=== PATIENT | male | born 1950 | race Caucasian/White ===

== ENCOUNTER 2024-02-29 09:09 | Emergency (ER) | payer MEDICARE, SELFPAY ==
[2024-02-29 09:15] VITALS: BP 200/81; PULSE 56; RESP 16; TEMP 36.8; O2SAT 96; BMI 26.6
--- NOTE | 2024-02-29 09:35 | CT_ITS ---
WS: [id number] CTA HEAD AND NECK TECHNIQUE: Contrast enhanced CTA of the head and neck with coronal and sagittal reformatted images an d maximum intensity projection (MIP) images. NASCET criteria utilized. CLINICAL INFORMATION: L facial, hand, leg numbness COMPARISON: None. DLP: 558.[address] scans at [facility] use at least one of these dose optimization techniques: automated e xposure control; mA and/or kV adjustment per patient size (includes targeted exams where dose is matc hed to clinical indication); or iterative reconstruction. FINDINGS: RIGHT: RIGHT common carotid artery is patent. Mild calcified atheromatous plaque RIGHT carotid bulb e xtending to the ICA. Less than 50% RIGHT ICA stenosis. RIGHT ICA is patent to the skull base. LEFT: LEFT common carotid artery is patent. Mild calcified atheromatous plaque LEFT carotid bulb exte nding into the ICA. Less than 50% LEFT ICA stenosis. LEFT ICA is patent to the skull base. LEFT dominant vertebral artery. Smaller but patent RIGHT vertebral artery. Proximal basilar artery is patent. Normal vascularity to the IT PROJECT MANAGER territory bilaterally. Mild narrowing of the RIGHT P1-2 juncti on. Mild intracranial atheromatous disease. Both ICAs are patent to the skull base. Moderate cavernous ca rotid calcification. Normal vascularity to the HERBIE and MCA territories bilaterally. No evidence of pr oximal flow-limiting stenosis. Mild narrowing in the cavernous carotid arteries bilaterally. Straightening with reversal of the normal cervical lordosis. 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 Sligh t anterolisthesis C5 on C6. Lung apices are well aerated. Paranasal sinuses are well aerated. CT/CT angio headneck* [id number] IMPRESSION: 1. Less than 50% ICA stenosis bilaterally. Both ICAs are patent to the skull b ase. 2. LEFT dominant vertebral artery. Both vertebral arteries are patent. 3. Mild intracranial atheromatous disease. 4. No evidence of proximal flow-limiting intracranial stenosis. 5. Mild stenosis RIGHT P1-2 segment. Distal RIGHT IT PROJECT MANAGER remains patent.
--- NOTE | 2024-02-29 09:36 | ECG_ITS ---
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 Measurements Intervals [place] Rate: 52 P: 32 DE: 177 QRS: -2 QRSD: 86 T: 65 QT: 414 QTc: 387 Interpretive Statements SINUS BRADYCARDIA No previous ECG available for comparison Electronically Signed On 02-29-2024 10:32:19 CDT by Franko Angel M.D. [id number]
--- NOTE | 2024-02-29 09:36 | CT_ITS ---
WS: [id number] CT scan of the head, 02/29/2024 Clinical Data: L facial, hand, leg numbness Comparison: None. DLP: 1061.08 mGy-centimeters All CT scans at [facility] use at least one of these dose optimization techniques: automated e xposure control; mA and/or kV adjustment per patient size (includes targeted exams where dose is matc hed to clinical indication); or iterative reconstruction. Findings: The ventricular system is minimally dilated without shift. No recent infarct or hemorrhage is seen. T here are no abnormal intracerebral masses. The cerebellum and brainstem are not remarkable. Bony windows of the skull and skull base show no fractures or erosions. The mastoid air cells, landscape maintenance internship al auditory canals, sella turcica, intraorbital contents, and paranasal sinuses are unremarkable. CT/CT head thrombolytic 02402 Impression: Mild cerebral atrophy.
--- NOTE | 2024-02-29 09:41 | ED_ITS ---
Documented by User: LOU Daniels 02/29/24 11:39 HPI - Neuro Symptoms/Deficit 2 General: Chief Complaint: Weakness Stated Complaint: numbness is face, hands, arm Time Seen by Provider: 02/29/24 09:20 Source: patient Mode of arrival: wheelchair Limitations: no limitations History of Present Illness: Patient is a nice 74-year-old male here with complaints of paresthesias near his left jaw, loss of dexterity to his left hand, and what he feels could be a left foot drop. He states he began noticing symptoms yesterday. He feels like he has underwent a dental block to the left side of his face/jaw as it feels tingling . He felt like yesterday he began losing dexterity in his left hand although later states this could be secondary to his carpal tunnel and trigger finger. He has not noticed any numbness or tingling or weakness to the arm itself. He also reports he feels like he is dragging his left leg . Does report a history of back/lumbar radiculopathy. Doesn't feel like the leg is weak. Patient fears he could have had a stroke or a right-sided brain tumor. Patient denies previous CVA/TIA. PMH includes hypertension. He states PCP is Dr. Santos although has not seen her yet. Onset (ago): day(s) (yesterday) Timing confirmed by: other (self) Location: left face, left arm (left hand) and left leg History of same: No Severity: mild Quality: numb and tingling Relieving factors: none Exacerbating factors: none On Anticoagulants: No Associated symptoms: Deny chest pain, headache(s), malaise, nausea, syncope, vertigo or vomiting Treatments Prior to Arrival: none Review of Systems 2 Const: Denies: fever(s), chills, body aches, fatigue or malaise Eyes: Denies: change in vision, blurry vision, photophobia, floaters or seeing flashes Card: Denies: chest pain, palpitations, irregular heart rhythm, lightheadedness, syncope or dyspnea on exertion Resp: Denies: dyspnea, productive cough or pain on inspiration GI: Denies: abdominal pain, nausea, vomiting, heartburn or diarrhea : Denies: difficulty urinating or dysuria Musc: Denies: neck pain, back pain, extremity pain, extremity swelling or joint pain Skin/Breast: Denies: rash Neuro: Reports: sensory changes and lack of coordination (reports loss of dexterity in L hand); Denies: headache(s), weakness in extremities, frequent falls, dizziness, vertigo, confusion, behavioral changes, Slurred speech present or seizure-like activity NIH stroke score 2 NIHSS: Level Of Consciousness - 1a: 0 Level Of Consciousness Questions - 1b: Both Correct Level Of Consciousness Commands - 1c: Both Correct Best Gaze - 2: Normal Visual Sandoval - 3: No Visual Loss Facial Palsy - 4: N ormal Motor Arm Right - 5: No Drift Motor Arm Left - 5: No Drift Motor Leg Right - 6: No Drift Motor Leg Left - 6: No Drift Limb Ataxia - 7: A bsent Sensory - 8: Mild To Moderate Loss Best Language - 9: No Aphasia Dysarthia - 10: Normal Extinction And Inattention - 11: 0 Score: Total Score: 1 Physical Exam 2 Const: COMMON NORMALS: no acute distress, average body habitus, patient oriented x3, no limitations, healthy appearing, alert and well nourished G ENERAL APPEARANCE: cooperative ORIENTATION/CONSCIOUSNESS: Yes awake, Yes oriented to person, Yes oriented to place and Yes oriented to time HENMT: COMMON NORMALS: normocephalic and atraumatic HEAD & SCALP: normal to inspection, normocephalic and atraumatic FACE & SINUS: normal facial exam and face symmetric Eye: COMMON NORMALS: Equal, round and reactive pupils present and EOMs intact bilaterally GENERAL EYE: appearance normal, both eyes and all related structures and normal light reflex VISUAL SANDOVAL: Yes other (no visual field deficits ) PUPIL: Yes Equal, round and reactive pupils present DIRECT OPHTHALMOSCOPY: Yes normal light reflex Neck/C-Spine: COMMON NORMALS: full ROM, no lymphadenopathy, supple and no meningeal signs Chest: COMMONS NORMALS: normal inspection of the chest Resp: COMMON NORMALS: normal respiratory effort and clear to auscultation bilaterally AUSCULTATION: clear to auscultation bilaterally Cardio: COMMON NORMALS: regular rhythm RATE: bradycardic (upper 50s) R HYTHM: regular rhythm GI: COMMON NORMALS: Normal to inspection, nondistended, normoactive bowel sounds present, Soft to palpation, non-tender, No hepatosplenomegaly present and no masses PALPATION: Yes Soft to palpation and Yes No hepatosplenomegaly present : COMMON NORMALS: Yes no CVA tenderness BLADDER/KIDNEY EXAM: Yes no CVA tenderness Back/Pelvis: COMMON NORMALS: no CVA tenderness and thoracic and lumbar spine normal to inspection Extremity: COMMON NORMALS: normal to inspection, full ROM, capillary refill normal, no joint enlargement, no clubbing, cyanosis or edema, no calf tenderness and no pedal edema GENERAL: Yes normal exam except as noted Neuro: FRANCISCO COMA SCALE: document GCS findings Francisco coma scale eye opening: Spontaneous [place] coma scale verbal response: Orientated [place] coma scale motor response: Obey commands Francisco coma scale total score: 15 COMMON NORMALS: patient oriented x3, CN's II-XII intact bilaterally, moves all extremities and no focal motor deficits SENSORIUM/ORIENTATION: Yes alert, Yes oriented to person, Yes oriented to place and Yes oriented to time MENINGEAL SIGNS: Yes no meningeal signs COORDINATION/BALANCE: [id number]-aw-[id number] test normal and [id number]-aq-[id number] test normal SPEECH: speech normal SENSORY EXAM: Y es other (see below) MOTOR EXAM: 5/5 motor strength present throughout C OORDINATION: [id number]-yd-[id number] test normal and [id number]-xc-[id number] test normal OTHER: reports some mild decreased sensation to his lower L face/jaw as well as his medial L lower leg and L fingers Skin: COMMON NORMALS: no rashes or lesions noted GENERAL SKIN EXAM: no rashes or lesions noted Course 2 Vital Signs: Vital signs: Vital Signs Temperature 98.2 F 02/29/24 09:15 Pulse Rate 47 L 02/29/24 11:33 Respiratory Rate 22 H 02/29/24 11:33 Blood Pressure 178/95 02/29/24 11:33 Pulse Oximetry 94 02/29/24 11:33 Oxygen Delivery Me thod Room Air 02/29/24 11:33 MDM - Neuro Symptoms/Deficit Medical Decision Making Patient has no motor weakness. NIH of 1 upon arrival for sensory/paresthesias. Symptoms beginning yesterday. Blood work here is unremarkable. CT head and CTA head/neck obtained and non-acute. He will be written outpatient order for MRI and will have him follow up with PCP. Will start on statin/plavix. He already takes a daily aspirin. Spoke to Dr. Diaz in regards to patient and he agrees with care plan/work up performed here in the ED. Return precautions given to the patient. Differential Diagnosis Likely carpal tunnel syndrome, peripheral neuropathy, cerebrovascular accident and transient cerebral ischemia Medical Records I reviewed the patient's medical records. Lab Data I reviewed the patient's lab results. 02/29/24 09:47 02/29/24 09:47 Radiology Impressions Head/Neck CTA 02/29/24 09:35 IMPRESSION: 1. Less than 50% ICA stenosis bilaterally. Both ICAs are patent to the skull base. 2. LEFT dominant vertebral artery. Both vertebral arteries are patent. 3. Mild intracranial atheromatous disease. 4. No evidence of proximal flow-limiting intracranial stenosis. 5. Mild stenosis RIGHT P1-2 segment. Distal RIGHT ROD TAPE OPERATOR remains patent. Head CT 02/29/24 09:36 Impression: Mild cerebral atrophy. Laboratory Results WBC 6.18 10^3/uL (3.29-11.43) 02/29/24 09:47 RBC 5.36 10^6/uL (3.85-5.65) 02/29/24 09:47 Hgb 16.10 g/dL (11.27-16.99) 02/29/24 09:47 Hct 48.3 % (37-53) 02/29/24 09:47 MCV 90.1 fl (82-101) 02/29/24 09:47 MCH 30.0 pg (27-33) 02/29/24 09:47 MCHC 33.3 g/dL (30-55) 02/29/24 09:47 RDW 12.7 % (12.1-15.1) 02/29/24 09:47 Plt Count 216 10^3/cmm (157-399) 02/29/24 09:47 MPV 9.8 fL (7.4-10.4) 02/29/24 09:47 Neut % (Auto) 62.8 % 02/29/24 09:47 Lymph % (Auto) 22.8 % 02/29/24 09:47 [place] % (Auto) 8.3 % 02/29/24 09:47 Eos % (Auto) 4.5 % 02/29/24 09:47 Baso % (Auto) 1.3 % 02/29/24 09:47 Neut # (Auto) 3.88 10^3/uL (1.8-7.7) 02/29/24 09:47 Lymph # (Auto) 1.4 10^3/uL (0.8-4.8) 02/29/24 09:47 [place] # (Auto) 0.5 10^3/uL (0.2-0.9) 02/29/24 09:47 Eos # (Auto) 0.3 10^3/uL (0.0-0.8) 02/29/24 09:47 Baso # (Auto) 0.1 10^3/uL (0.0-0.1) 02/29/24 09:47 Nucleated RBC % (auto) 0 % 02/29/24 09:47 Nucleated RBCs # 0.0 /100WBC 02/29/24 09:47 PT 12.80 SECONDS (12.1-14.9) 02/29/24 09:47 INR 0.94 (0.8-1.2) 02/29/24 09:47 APTT 32.8 SECONDS (23.9-36.7) 02/29/24 09:47 Sodium 143 mmol/L (136-145) 02/29/24 09:47 Potassium 4.0 mmol/L (3.5-5.1) 02/29/24 09:47 Chloride 107 mmol/L (98-107) 02/29/24 09:47 Carbon Dioxide 24 mmol/L (22-29) 02/29/24 09:47 Anion Gap 16.0 (5-19) 02/29/24 09:47 BUN 17 mg/dL (8-23) 02/29/24 09:47 Creatinine 0.9 mg/dL (0.7-1.2) 02/29/24 09:47 GFR Calculation Not Reportable 02/29/24 09:47 Glucose 122 mg/dL (65-115) H 02/29/24 09:47 Calculated Osmolality 299 mOsm/kg (285-295) H 02/29/24 09:47 Calcium 9.1 mg/dL (8.5-10.5) 02/29/24 09:47 Total Bilirubin 0.4 mg/dL (0.15-1.2) 02/29/24 09:47 AST 11 U/L (0-40) 02/29/24 09:47 ALT 15 U/L (0-41) 02/29/24 09:47 Alkaline Phosphatase 95 U/L (40-130) 02/29/24 09:47 Total Protein 6.7 g/dL (6.6-8.7) 02/29/24 09:47 Albumin 3.9 g/dL (3.5-5.2) 02/29/24 09:47 Globulin 2.8 g/dL (1.3-4.6) 02/29/24 09:47 All radiology interpretation(s) finalized by discharge Discharge Plan Discharge Patient Disposition: Home Clinical Impression: Stroke-like symptoms Condition: Stable Prescriptions: New atorvastatin 40 mg tablet 40 mg PO DAILY Qty: 30 0RF Plavix 75 mg tablet 75 mg PO DAILY Qty: 30 0RF No Action doxycycline hyclate 100 mg capsule 100 mg PO BID PRN (Reason: Acne) promethazine 25 mg tablet 50 mg PO BEDTIME PRN (Reason: Sleep) olmesartan 20 mg tablet 20 mg PO DAILY nebivolol 10 mg tablet 10 mg PO BEDTIME Discharge Orders: Discharge ED (Routine); Ordered 02/29/24 Ordered By: Susan Lux Activity Restrictions/Additional Instructions: As we discussed your CT head and CT head/neck angiogram were unremarkable. Your blood work is normal. I have scheduled you for an outpatient MRI. Case management/central scheduling should be contacting you in regards to this. As we discussed I would like you to recheck your primary care provider this week and set up a follow-up appointment. I will start you on atorvastatin and Plavix in addition to your daily aspirin therapy. Coding Level of Care Code ED Riprap Placing Supervisor for Chg Fwd Documented by User: Arnie Diaz DO 02/29/24 11:41 HPI - Neuro Symptoms/Deficit 2 General: Chief Complaint: Weakness Stated Complaint: numbness is face, hands, arm Time Seen by Provider: 02/29/24 09:20 NIH stroke score 2 Score: Total Score: 1 Physical Exam 2 Neuro: FRANCISCO COMA SCALE: document GCS findings [place] coma scale total score: 15 Course 2 Vital Signs: Vital signs: Vital Signs Temperature 98.2 F 02/29/24 09:15 Pulse Rate 47 L 02/29/24 11:33 Respiratory Rate 22 H 02/29/24 11:33 Blood Pressure 178/95 02/29/24 11:33 Pulse Oximetry 94 02/29/24 11:33 Oxygen Delivery Me thod Room Air 02/29/24 11:33 MDM - Neuro Symptoms/Deficit Medical Decision Making Patient has no motor weakness. NIH of 1 upon arrival for sensory/paresthesias. Symptoms beginning yesterday. Blood work here is unremarkable. CT head and CTA head/neck obtained and non-acute. He will be written outpatient order for MRI and will have him follow up with PCP. Will start on statin/plavix. He already takes a daily aspirin. Spoke to Dr. Diaz in regards to patient and he agrees with care plan/work up performed here in the ED. Return precautions given to the patient. Chart reviewed and patient discussed with midlevel. Agree with assessment and plan. Lab Data 02/29/24 09:47 02/29/24 09:47 Radiology Impressions Head/Neck CTA 02/29/24 09:35 IMPRESSION: 1. Less than 50% ICA stenosis bilaterally. Both ICAs are patent to the skull base. 2. LEFT dominant vertebral artery. Both vertebral arteries are patent. 3. Mild intracranial atheromatous disease. 4. No evidence of proximal flow-limiting intracranial stenosis. 5. Mild stenosis RIGHT P1-2 segment. Distal RIGHT ROD TAPE OPERATOR remains patent. Head CT 02/29/24 09:36 Impression: Mild cerebral atrophy. Laboratory Results WBC 6.18 10^3/uL (3.29-11.43) 02/29/24 09:47 RBC 5.36 10^6/uL (3.85-5.65) 02/29/24 09:47 Hgb 16.10 g/dL (11.27-16.99) 02/29/24 09:47 Hct 48.3 % (37-53) 02/29/24 09:47 MCV 90.1 fl (82-101) 02/29/24 09:47 MCH 30.0 pg (27-33) 02/29/24 09:47 MCHC 33.3 g/dL (30-55) 02/29/24 09:47 RDW 12.7 % (12.1-15.1) 02/29/24 09:47 Plt Count 216 10^3/cmm (157-399) 02/29/24 09:47 MPV 9.8 fL (7.4-10.4) 02/29/24 09:47 Neut % (Auto) 62.8 % 02/29/24 09:47 Lymph % (Auto) 22.8 % 02/29/24 09:47 [place] % (Auto) 8.3 % 02/29/24 09:47 Eos % (Auto) 4.5 % 02/29/24 09:47 Baso % (Auto) 1.3 % 02/29/24 09:47 Neut # (Auto) 3.88 10^3/uL (1.8-7.7) 02/29/24 09:47 Lymph # (Auto) 1.4 10^3/uL (0.8-4.8) 02/29/24 09:47 [place] # (Auto) 0.5 10^3/uL (0.2-0.9) 02/29/24 09:47 Eos # (Auto) 0.3 10^3/uL (0.0-0.8) 02/29/24 09:47 Baso # (Auto) 0.1 10^3/uL (0.0-0.1) 02/29/24 09:47 Nucleated RBC % (auto) 0 % 02/29/24 09:47 Nucleated RBCs # 0.0 /100WBC 02/29/24 09:47 PT 12.80 SECONDS (12.1-14.9) 02/29/24 09:47 INR 0.94 (0.8-1.2) 02/29/24 09:47 APTT 32.8 SECONDS (23.9-36.7) 02/29/24 09:47 Sodium 143 mmol/L (136-145) 02/29/24 09:47 Potassium 4.0 mmol/L (3.5-5.1) 02/29/24 09:47 Chloride 107 mmol/L (98-107) 02/29/24 09:47 Carbon Dioxide 24 mmol/L (22-29) 02/29/24 09:47 Anion Gap 16.0 (5-19) 02/29/24 09:47 BUN 17 mg/dL (8-23) 02/29/24 09:47 Creatinine 0.9 mg/dL (0.7-1.2) 02/29/24 09:47 GFR Calculation Not Reportable 02/29/24 09:47 Glucose 122 mg/dL (65-115) H 02/29/24 09:47 Calculated Osmolality 299 mOsm/kg (285-295) H 02/29/24 09:47 Calcium 9.1 mg/dL (8.5-10.5) 02/29/24 09:47 Total Bilirubin 0.4 mg/dL (0.15-1.2) 02/29/24 09:47 AST 11 U/L (0-40) 02/29/24 09:47 ALT 15 U/L (0-41) 02/29/24 09:47 Alkaline Phosphatase 95 U/L (40-130) 02/29/24 09:47 Total Protein 6.7 g/dL (6.6-8.7) 02/29/24 09:47 Albumin 3.9 g/dL (3.5-5.2) 02/29/24 09:47 Globulin 2.8 g/dL (1.3-4.6) 02/29/24 09:47 Discharge Plan Discharge Patient Disposition: Home Clinical Impression: Stroke-like symptoms Condition: Stable Prescriptions: New atorvastatin 40 mg tablet 40 mg PO DAILY Qty: 30 0RF Plavix 75 mg tablet 75 mg PO DAILY Qty: 30 0RF No Action doxycycline hyclate 100 mg capsule 100 mg PO BID PRN (Reason: Acne) promethazine 25 mg tablet 50 mg PO BEDTIME PRN (Reason: Sleep) olmesartan 20 mg tablet 20 mg PO DAILY nebivolol 10 mg tablet 10 mg PO BEDTIME Discharge Orders: Discharge ED (Routine); Ordered 02/29/24 Ordered By: Susan Lux Activity Restrictions/Additional Instructions: As we discussed your CT head and CT head/neck angiogram were unremarkable. Your blood work is normal. I have scheduled you for an outpatient MRI. Case management/central scheduling should be contacting you in regards to this. As we discussed I would like you to recheck your primary care provider this week and set up a follow-up appointment. I will start you on atorvastatin and Plavix in addition to your daily aspirin therapy. Coding Level of Care Code ED Riprap Placing Supervisor for Ney Cade
--- NOTE | 2024-02-29 09:49 | PC.PHAR ---
MED LIST ENTERED-WILL VERIFY LAST TAKEN, AFTER EKG
[2024-02-29 09:55] LABS: Basophils # 0.1 10^3/uL (0.0-0.1); Basophils % 1.3 %; Eosinophils # 0.3 10^3/uL (0.0-0.8); Eosinophils % 4.5 %; Hematocrit 48.3 % (37-53); Lymphocytes # 1.4 10^3/uL (0.8-4.8); Lymphocytes % 22.8 %; Mean Corpuscular HGB Conc 33.3 g/dL (30-55); Mean Corpuscular Volume 90.1 fl (82-101); Mean Platelet Volume 9.8 fL (7.4-10.4); Monocytes # 0.5 10^3/uL (0.2-0.9); Monocytes % 8.3 %; Neutrophils # 3.88 10^3/uL (1.8-7.7); Neutrophils % 62.8 %; Nucleated Red Blood Cells % 0 %; Platelet Count 216 10^3/cmm (157-399); Red Blood Count 5.36 10^6/uL (3.85-5.65); Red Cell Distribution Width 12.7 % (12.1-15.1); White Blood Count 6.18 10^3/uL (3.29-11.43)
[2024-02-29] MEDS: enalaprilat 2.5 mg/2 mL SDV 0.625 MG IVP (10:09)
[2024-02-29 10:12] LABS: INR 0.94 (0.8-1.2)
[2024-02-29 10:13] LABS: Partial Thromboplastin Time 32.8 SECONDS (23.9-36.7)
[2024-02-29 10:14] LABS: Alanine Aminotransferase 15 U/L (0-41); Albumin Level 3.9 g/dL (3.5-5.2); Alkaline Phosphatase 95 U/L (40-130); Aspartate Amino Transferase 11 U/L (0-40); Blood Urea Nitrogen 17 mg/dL (8-23); Calcium 9.1 mg/dL (8.5-10.5); Carbon Dioxide 24 mmol/L (22-29); Chloride 107 mmol/L (98-107); Creatinine Clr Calc Pharmacy 76.3862; Globulin 2.8 g/dL (1.3-4.6); Glucose 122 mg/dL (65-115); Osmolality Calculated 299 mOsm/kg (285-295); Sodium 143 mmol/L (136-145); Total Bilirubin 0.4 mg/dL (0.15-1.2); Total Protein 6.7 g/dL (6.6-8.7)
[2024-02-29 10:19] VITALS: BP 173/82; PULSE 58; RESP 22; O2SAT 95
[2024-02-29 10:27] VITALS: BP 163/85
[2024-02-29] MEDS: iohexol 350 mg/mL 500 mL Btl (per mL) IV (10:35)
[2024-02-29 11:01] VITALS: BP 167/81; PULSE 49; O2SAT 96
[2024-02-29 11:33] VITALS: BP 178/95; PULSE 47; RESP 22; O2SAT 94
[2024-02-29 11:49] VITALS: BP 178/95; PULSE 47; RESP 22; O2SAT 94
== END 2024-02-29 11:51 | disposition home or self-care (01) ==
PROVIDERS: Emergency Provider Physician Assistant
DX: R20.0 Anesthesia of skin (principal); R53.1 Weakness
CPT/HCPCS: 36415; 70450; 70496; 70498; 80053; 85025; 85610; 85730; 93005; 96374; 99285; Q9967

== ENCOUNTER 2024-03-12 13:55 | Emergency (ER) | payer MEDICARE, SELFPAY ==
--- NOTE | 2024-03-12 14:10 | CT_ITS ---
WS: [id number] CT HEAD TECHNIQUE: Noncontrast CT of the head obtained from the skullbase to the vertex. CLINICAL INFORMATION: RT FACIAL DROOP COMPARISON: CT 02/29/2024 DLP: [address] scans at [facility] use at least one of these dose optimization techniques: automated e xposure control; mA and/or kV adjustment per patient size (includes targeted exams where dose is matc hed to clinical indication); or iterative reconstruction. FINDINGS: No evidence of intracranial hemorrhage or mass effect. Ventricular system and basal cisterns are vasquez nt. Moderate small vessel changes with mild parenchymal volume loss. No extra-axial fluid collections . No evidence of mass or mass effect. Vascular calcification. Tiny chronic lacunar infarct RIGHT caud ate. Chronic lacunar infarcts in the basal ganglia similar to previous. Paranasal sinuses and mastoid air cells are well aerated. .Normal visualized soft tissues. CT/CT head thrombolytic 38826 IMPRESSION: 1. No evidence of intracranial hemorrhage or mass effect. 2. Moderate small vessel changes with mild parenchymal volume loss. 3. Vascular calcification. 4. Chronic lacunar infarcts in the bilateral basal ganglia appear unchanged. 5. No acute intracranial findings. Notified Ari Abdullahi DO at 03/12/2024 2:21 PM.
--- NOTE | 2024-03-12 14:15 | ECG_ITS ---
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 Measurements Intervals [place] Rate: 62 P: -5 AR: 148 QRS: -12 QRSD: 102 T: 56 QT: 411 QTc: 418 Interpretive Statements SINUS RHYTHM Compared to ECG 02/29/2024 09:49:00 Sinus bradycardia no longer present Electronically Signed On 03-12-2024 15:37:16 CDT by Franko Angel M.D. [email or web address] [email or web address]/store/[id number] f
--- NOTE | 2024-03-12 14:15 | XR_ITS ---
WS: [id number] Examination: XR chest 1V portable [id number] Reason for Exam: cva Date: March 12, 2024 Comparison: None. Findings: The heart is not grossly enlarged in size on this AP portable film. The mediastinum not widened Lungs are hyperinflated with chronic change There is no pulmonary edema or pleural effusion. I see no dense consolidation. XR/XR chest 1V portable [id number] Impression: Chronic changes are present without acute lung process.
--- NOTE | 2024-03-12 14:16 | ED_ITS ---
HPI - Neuro Symptoms/Deficit 2 General: Chief Complaint: Neuro Symptoms/Deficit Stated Complaint: Stroke like symotoms Time Seen by Provider: 03/12/24 14:08 Source: patient Mode of arrival: ambulatory Limitations: no limitations History of Present Illness: This patient presented to our emergency department because of continued symptoms of right facial weakness and difficulty with speech. He stated the symptoms began approximately 5 PM yesterday evening. He assumed it was likely a Acosta's palsy presentation and therefore did not make his way to the emergency department. His symptoms have persisted today and he made his way to the emergency department. He denied any concomitant headache motor weakness in other locations etc. He had previously been in this emergency department 1 week ago for left-sided weakness symptoms. At that time his workup was unremarkable for any reversible causes. Location: speech and right face On Anticoagulants: No Associated symptoms: Deny chest pain, headache(s), nausea, syncope or vomiting Related Data Home Medications Medication Instructions Recorded Confirmed doxycycline hyclate 100 mg capsule 100 mg PO BID PRN Acne 02/29/24 03/12/24 nebivolol 10 mg tablet 10 mg PO BEDTIME 02/29/24 03/12/24 olmesartan 20 mg tablet 20 mg PO DAILY 02/29/24 03/12/24 promethazine 25 mg tablet 50 mg PO BEDTIME PRN Sleep 02/29/24 03/12/24 Previous Rx's Medication Instructions Recorded atorvastatin 40 mg tablet 40 mg PO DAILY #30 tabs 02/29/24 clopidogrel 75 mg tablet (Plavix) 75 mg PO DAILY #30 tabs 02/29/24 clopidogrel 75 mg tablet (Plavix) 75 mg PO DAILY 21 days #1 tab 03/12/24 Allergies Allergy/AdvReac Type Severity Reaction Status Date / Time No Known Allergies Allergy Verified 02/29/24 09:14 Review of Systems 2 Const: Denies: fever(s) or chills Eyes: Denies: change in vision ENMT: Denies: throat pain, odynophagia, nasal discharge or nasal congestion Card: Denies: chest pain, palpitations, irregular heart rhythm, lightheadedness, syncope or pre-syncope Resp: Denies: dyspnea, productive cough or non-productive cough GI: Denies: abdominal pain, nausea, vomiting or diarrhea : Denies: flank pain, difficulty urinating, dysuria or urinary frequency Musc: Denies: neck pain, back pain, extremity pain or extremity swelling Skin/Breast: Denies: rash, pruritus or erythema Neuro: Reports: Slurred speech present; Denies: headache(s), numbness in extremities, weakness in extremities, lack of coordination or seizure-like activity Psych: Denies: anxiety or depression Endo: Denies: polyuria or polydipsia Eduardo/Lymph: Denies: easy bruising NIH stroke score 2 NIHSS: Level Of Consciousness - 1a: 0 Level Of Consciousness Questions - 1b: Both Correct Level Of Consciousness Commands - 1c: Both Correct Best Gaze - 2: Normal Visual Barrios - 3: No Visual Loss Facial Palsy - 4: P artial Paralysis Motor Arm Right - 5: No Drift Motor Arm Left - 5: No Drift Motor Leg Right - 6: No Drift Motor Leg Left - 6: No Drift Limb Ataxia - 7: Absent Sensory - 8: Normal Best Language - 9: No Aphasia D ysarthia - 10: Severe Dysarthia Extinction And Inattention - 11: 0 Score: Total Score: 4 Physical Exam 2 Narrative: EXAM NARRATIVE: The patient is alert and cooperative. He has expressive dysarthria which makes communication somewhat difficult Const: COMMON NORMALS: no acute distress, average body habitus, patient oriented x3 and alert HENMT: COMMON NORMALS: normocephalic, atraumatic, Normal nasal mucous membranes and turbinates present, moist oral mucous membranes and oropharynx normal HEAD & SCALP: normocephalic and atraumatic NOSE: Normal nasal mucous membranes and turbinates present Eye: COMMON NORMALS: Equal, round and reactive pupils present, EOMs intact bilaterally and conjunctivae normal CONJUNCTIVA: Yes conjunctivae normal P UPIL: Yes Equal, round and reactive pupils present Neck/C-Spine: COMMON NORMALS: full ROM, no lymphadenopathy, no JVD and No carotid bruits Chest: COMMONS NORMALS: normal inspection of the chest and normal palpation of entire chest wall Resp: COMMON NORMALS: normal respiratory effort, No retractions, No use of accessory muscles and clear to auscultation bilaterally AUSCULTATION: clear to auscultation bilaterally Cardio: COMMON NORMALS: no JVD, regular rate, regular rhythm, No murmurs present (Cardio) and Peripheral pulses 2+ throughout RATE: regular rate R HYTHM: regular rhythm PERIPHERAL PULSES: Peripheral pulses 2+ throughout GI: COMMON NORMALS: Normal to inspection, nondistended, normoactive bowel sounds present, Soft to palpation and non-tender PALPATION: Yes Soft to palpation : COMMON NORMALS: Yes no CVA tenderness BLADDER/KIDNEY EXAM: Yes no CVA tenderness Back/Pelvis: COMMON NORMALS: no CVA tenderness, no thoracic nor lumbar tenderness, thoraco-lumbar ROM normal and straight leg raise negative bilaterally Extremity: COMMON NORMALS: normal to inspection, full ROM, capillary refill normal, no joint enlargement and no calf tenderness Neuro: COMMON NORMALS: patient oriented x3 and moves all extremities S ENSORIUM/ORIENTATION: Yes alert CRANIAL NERVES: Yes CN VII (facial) Laterality: left SPEECH: expressive aphasia MOTOR EXAM: 5/5 motor strength present throughout Psych: COMMON NORMALS: mental status grossly normal Skin: COMMON NORMALS: no rashes or lesions noted, no wounds and turgor normal GENERAL SKIN EXAM: no rashes or lesions noted and turgor normal Course 2 Reevaluation(s): Reevaluation #1: Patient remains clinically stable. Blood pressure is now 189/90. No other change in his current clinical condition. I discussed current findings with the patient. Also recommended continued observation for further workup for embolic phenomenon given his disparate symptoms over the past 10 days. The patient voices understanding of the recommendations but his preference is to be discharged. Discussed dual antibiotic antiplatelet therapy which he is agreeable to. 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 Time: 15:27 Reevaluation #2: Again I reiterated risks and benefits to include high risk of recurrent stroke and the need for additional workup to determine if there is a source of embolic etiology. His cast dual platelet therapy for 3 weeks to include Plavix 75 mg daily as well as aspirin 81 mg daily and then after 2 to 3 weeks discontinuing the Plavix. His family was present during this process and were supportive of his decision and reiterated that it was his decision to make. He is conscious alert and will to voice understanding of the risks and benefits and has intact decision-making capacity not impaired by illness or obvious negative influence of alcohol or other substances. Time: 15:39 Consultations: Consultation #1: Discussed with Dr. Gutiérrez consulting neurologist who is seeing the patient in the emergency department. Time: 14:26 Vital Signs: Vital signs: Vital Signs Pulse Rate 55 L 03/12/24 14:38 Blood Pressure 200/101 03/12/24 14:38 Pulse Oximetry 92 03/12/24 14:38 MDM - Neuro Symptoms/Deficit Medical Decision Making Patient presented as noted in the HPI with right facial weakness and dysarthria that began 5:00 yesterday. He eventually made his way to the emergency department. Initial NIH was 4 based upon his facial weakness and speech difficulty. Initial exam was otherwise unremarkable other than elevated systolic blood pressure. Workup ensued to ensure that no evidence of intracranial hemorrhage versus a embolic versus thrombotic etiology to his presentation. He is absolutely out of the window for consideration of thrombolytic therapy and this was comes in concert with consulting neurologist opinion which was shared with the patient who voiced understanding. Patient workup included a negative CT scan, reassuring laboratories with a slightly elevated erythrocyte sedimentation rate. His pressure responded to a very small dose of labetalol with approximately 10% decrease from his maximum in the emergency department. Given his disparate symptoms that occurred today as compared with last week which were opposite sided suggest a possible embolic phenomena or peripheral perhaps even a vasculitis etiology although his sed rate does not support the latter. Certainly do not think this is hypertensive emergency and/or and there is no evidence of intercranial hemorrhage. We had a discussion regarding the need for additional workup and recommended observation or perhaps full admission to complete that evaluation. The patient acknowledged that that would be optimal but his preference would be to continue the workup as an outpatient under the direction of his own physician. 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 He is being discharged in stable condition. Medical Records I reviewed the patient's medical records. Previous CTA at presentation 1 week ago Lab Data 03/12/24 14:10 03/12/24 14:[address] 03/12/24 14:10 IMPRESSION: 1. No evidence of intracranial hemorrhage or mass effect. 2. Moderate small vessel changes with mild parenchymal volume loss. 3. Vascular calcification. 4. Chronic lacunar infarcts in the bilateral basal ganglia appear unchanged. 5. No acute intracranial findings. Notified Ari Abdullahi DO at 03/12/2024 2:21 PM. Chest X-Ray 03/12/24 14:15 Impression: Chronic changes are present without acute lung process. Laboratory Results WBC 9.14 10^3/uL (3.29-11.43) 03/12/24 14:10 RBC 5.74 10^6/uL (3.85-5.65) H 03/12/24 14:10 Hgb 17.10 g/dL (11.27-16.99) H 03/12/24 14:10 Hct 51.4 % (37-53) 03/12/24 14:10 MCV 89.5 fl (82-101) 03/12/24 14:10 MCH 29.8 pg (27-33) 03/12/24 14:10 MCHC 33.3 g/dL (30-55) 03/12/24 14:10 RDW 13.0 % (12.1-15.1) 03/12/24 14:10 Plt Count 253 10^3/cmm (157-399) 03/12/24 14:10 MPV 9.4 fL (7.4-10.4) 03/12/24 14:10 Neut % (Auto) 70.6 % 03/12/24 14:10 Lymph % (Auto) 18.5 % 03/12/24 14:10 Mccreary % (Auto) 7.9 % 03/12/24 14:10 Eos % (Auto) 1.6 % 03/12/24 14:10 Baso % (Auto) 0.7 % 03/12/24 14:10 Neut # (Auto) 6.46 10^3/uL (1.8-7.7) 03/12/24 14:10 Lymph # (Auto) 1.7 10^3/uL (0.8-4.8) 03/12/24 14:10 Mccreary # (Auto) 0.7 10^3/uL (0.2-0.9) 03/12/24 14:10 Eos # (Auto) 0.2 10^3/uL (0.0-0.8) 03/12/24 14:10 Baso # (Auto) 0.1 10^3/uL (0.0-0.1) 03/12/24 14:10 Nucleated RBC % (auto) 0 % 03/12/24 14:10 Nucleated RBCs # 0.0 /100WBC 03/12/24 14:10 ESR 19 mm/hr (0-10) H 03/12/24 14:10 PT 12.60 SECONDS (12.1-14.9) 03/12/24 14:10 INR 0.91 (0.8-1.2) 03/12/24 14:10 APTT 33.1 SECONDS (23.9-36.7) 03/12/24 14:10 Sodium 141 mmol/L (136-145) 03/12/24 14:10 Potassium 3.8 mmol/L (3.5-5.1) 03/12/24 14:10 Chloride 105 mmol/L (98-107) 03/12/24 14:10 Carbon Dioxide 23 mmol/L (22-29) 03/12/24 14:10 Anion Gap 16.8 (5-19) 03/12/24 14:10 BUN 15 mg/dL (8-23) 03/12/24 14:10 Creatinine 0.9 mg/dL (0.7-1.2) 03/12/24 14:10 GFR Calculation Not Reportable 03/12/24 14:10 Glucose 102 mg/dL (65-115) 03/12/24 14:10 POC Glucose 98 mg/dL (70-110) 03/12/24 14:12 Calculated Osmolality 293 mOsm/kg (285-295) 03/12/24 14:10 Calcium 9.2 mg/dL (8.5-10.5) 03/12/24 14:10 Total Bilirubin 0.6 mg/dL (0.15-1.2) 03/12/24 14:10 AST 14 U/L (0-40) 03/12/24 14:10 ALT 14 U/L (0-41) 03/12/24 14:10 Alkaline Phosphatase 99 U/L (40-130) 03/12/24 14:10 Total Protein 7.2 g/dL (6.6-8.7) 03/12/24 14:10 Albumin 4.2 g/dL (3.5-5.2) 03/12/24 14:10 Globulin 3.0 g/dL (1.3-4.6) 03/12/24 14:10 All radiology interpretation(s) finalized by discharge EKG Data EKG 1: I personally reviewed and interpreted this EKG as follows: Interpretation: Resting EKG contemporaneously reviewed. Reveals ventricular rate of 62 bpm. Normal LA interval, QRS duration, corrected QT interval. Normal axis. No acute ST-T wave changes. Discharge Plan Discharge Patient Disposition: Left Against Medical Advice Clinical Impression: Cerebrovascular accident, Elevated blood pressure reading Condition: Stable Prescriptions: New Plavix 75 mg tablet 75 mg PO DAILY 21 Days Qty: 1 0RF No Action doxycycline hyclate 100 mg capsule 100 mg PO BID PRN (Reason: Acne) promethazine 25 mg tablet 50 mg PO BEDTIME PRN (Reason: Sleep) olmesartan 20 mg tablet 20 mg PO DAILY nebivolol 10 mg tablet 10 mg PO BEDTIME atorvastatin 40 mg tablet 40 mg PO DAILY Qty: 30 0RF clopidogrel [Plavix] 75 mg tablet 75 mg PO DAILY Qty: 30 0RF Discharge Orders: Discharge ED (Routine); Ordered 03/12/24 Ordered By: Ari Abdullahi Discharge Diet: Low Salt Discharge Activity: Increase activity as tolerated Activity Restrictions/Additional Instructions: As we discussed you need additional evaluation to ensure that there is no other cause for your stroke. This should include an echocardiogram and other potential blood work evaluation. Choice is to continue this evaluation as an outpatient versus continuing as an observation or inpatient. We have recommended that you take Plavix 75 mg daily once daily for the next 21 days in addition to 81 mg of aspirin daily for that same period of 21 days. After 21 days you may go to 325 mg of aspirin. If it anytime you develop any new or worsening symptoms you are welcome to return to the emergency department for reevaluation. Coding Level of Care Code ED Special Education Assistant for Ney Cade
[2024-03-12 14:20] LABS: Glucose Point of Care 98 mg/dL (70-110)
[2024-03-12 14:23] LABS: Basophils # 0.1 10^3/uL (0.0-0.1); Basophils % 0.7 %; Eosinophils # 0.2 10^3/uL (0.0-0.8); Eosinophils % 1.6 %; Hematocrit 51.4 % (37-53); Lymphocytes # 1.7 10^3/uL (0.8-4.8); Lymphocytes % 18.5 %; Mean Corpuscular HGB Conc 33.3 g/dL (30-55); Mean Corpuscular Hemoglobin 29.8 pg (27-33); Mean Corpuscular Volume 89.5 fl (82-101); Mean Platelet Volume 9.4 fL (7.4-10.4); Monocytes # 0.7 10^3/uL (0.2-0.9); Monocytes % 7.9 %; Neutrophils # 6.46 10^3/uL (1.8-7.7); Neutrophils % 70.6 %; Nucleated Red Blood Cells % 0 %; Platelet Count 253 10^3/cmm (157-399); Red Blood Count 5.74 10^6/uL (3.85-5.65); White Blood Count 9.14 10^3/uL (3.29-11.43)
[2024-03-12 14:38] VITALS: BP 200/101; PULSE 55; O2SAT 92
[2024-03-12 14:40] LABS: Erythrocyte Sedimentation Rate 19 mm/hr (0-10)
[2024-03-12 14:43] LABS: Alanine Aminotransferase 14 U/L (0-41); Albumin Level 4.2 g/dL (3.5-5.2); Alkaline Phosphatase 99 U/L (40-130); Anion Gap 16.8 (5-19); Aspartate Amino Transferase 14 U/L (0-40); Blood Urea Nitrogen 15 mg/dL (8-23); Calcium 9.2 mg/dL (8.5-10.5); Carbon Dioxide 23 mmol/L (22-29); Chloride 105 mmol/L (98-107); Glucose 102 mg/dL (65-115); Osmolality Calculated 293 mOsm/kg (285-295); Potassium 3.8 mmol/L (3.5-5.1); Sodium 141 mmol/L (136-145); Total Bilirubin 0.6 mg/dL (0.15-1.2); Total Protein 7.2 g/dL (6.6-8.7)
[2024-03-12 14:45] LABS: INR 0.91 (0.8-1.2)
[2024-03-12 14:47] LABS: Partial Thromboplastin Time 33.1 SECONDS (23.9-36.7)
[2024-03-12] MEDS: labetalol 5 mg/mL SDV 20mL 10 MG IVP (15:05)
[2024-03-12 15:30] VITALS: BP 163/92; PULSE 58; O2SAT 93
[2024-03-12 15:40] VITALS: BP 148/89; PULSE 57; O2SAT 93
--- NOTE | 2024-03-12 15:44 | P.CONIM_ITS ---
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 The patient stated that approximately 1 week prior to this emergency room visit on 03/12/2024, he experienced left leg and left facial numbness and weakness. Patient underwent CT angiogram of the head and neck which was reported to be negative for any acute findings. The patient stated that on 03/11/2024 around 5 PM he experienced right facial weakness with some difficulty talking. The patient stated that he ignored the symptoms since he thought it may be Acosta's palsy. But today the patient's symptoms progressed with increasing difficulty speaking and increasing right lower facial weakness and therefore the patient presented to the [facility] emergency department. Code stroke was initiated at 2:01 PM on 03/12/2024. NIH score = 4 (secondary to obvious droop of his right lower face =2, and severe dysarthria but able to understand =2). Glucose Accu-Chek 98 Note: Since the patient's stroke symptoms began on 03/11/2024 at 5 PM and the patient did not present to the [facility] emergency department until 03/12/2024 and code stroke was initiated at 2:01 PM on 03/12/2024 the patient was not a candidate for intravenous thrombolytics and no intravenous thrombolytics were administered. Drug allergies: None Current medications: Lipitor 40 mg p.o. daily Doxycycline 100 mg p.o. twice daily, as needed for acne Nebivolol 10 mg p.o. nightly Olmesartan 20 mg p.o. daily Phenergan 50 mg p.o. nightly as needed for sleep Aspirin 325 mg p.o. twice daily since patient presented to the [facility] emergency room 1 week ago Past medical history: Right cerebral TIA symptoms 02/29/2024 manifested as left-sided weakness and numbness Hypertension Habits: The patient stated that he smoked for 50 years but quit. He denied other drug use. Family history: Remarkable for brother with heart disease. 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 Patient also stated that he was a [employer] physician and [employer] . Review of Systems 2 General: Reports: 10 or more systems reviewed and unremarkable except in HPI and below Medications/Allergies Home Medications Medication Instructions Recorded Confirmed Last Taken Type atorvastatin 40 mg tablet 40 mg PO DAILY #30 tabs 02/29/24 03/12/24 Unknown Rx clopidogrel 75 mg tablet (Plavix) 75 mg PO DAILY #30 tabs 02/29/24 03/12/24 Unknown Rx doxycycline hyclate 100 mg capsule 100 mg PO BID PRN Acne 02/29/24 03/12/24 Unknown History nebivolol 10 mg tablet 10 mg PO BEDTIME 02/29/24 03/12/24 02/28/24 History olmesartan 20 mg tablet 20 mg PO DAILY 02/29/24 03/12/24 02/28/24 History promethazine 25 mg tablet 50 mg PO BEDTIME PRN Sleep 02/29/24 03/12/24 02/28/24 History atorvastatin 40 mg tablet 40 mg PO DAILY #30 tabs 03/12/24 Unknown Rx clopidogrel 75 mg tablet (Plavix) 75 mg PO DAILY 21 days #1 tab 03/12/24 Unknown Rx Allergies Allergy/AdvReac Type Severity Reaction Status Date / Time No Known Allergies Allergy Verified 02/29/24 09:14 Vitals/I&O/Wt Last Vital Signs Pulse 55 L 03/12/24 14:38 BP 200/101 03/12/24 14:38 Pulse Ox 92 03/12/24 14:38 Physical Exam 2 Narrative: NIH score = 4 (secondary to obvious droop of his right lower face =2, and severe dysarthria but able to understand =2). Glucose Accu-Chek 98 Note: Since the patient's stroke symptoms began on 03/11/2024 at 5 PM and the patient did not present to the [facility] emergency department until 03/12/2024 and code stroke was initiated at 2:01 PM on 03/12/2024 the patient was not a candidate for intravenous thrombolytics and no intravenous thrombolytics were administered. Blood pressure 220/99 heart rate 60 O2 saturations 90% on room air The patient is alert and oriented x 3 speech is dysarthric. Head normocephalic. Neck supple. Cranial nerves II through XII revealed obvious right lower facial weakness. Pupils 3 to 4 mm round reactive to light and accommodation. Extraocular movements intact. Motor examination 5/5 bilaterally. There was no drift. Djxmpg-[id number]-thuseg and wrev-rxju-wyvw maneuvers revealed no ataxia. There was no extinction on double sensory stimulation. Sensory examination was intact to touch. Throat clear. Lungs clear. Heart regular rhythm and rate. Extremities were negative for clubbing cyanosis or edema. Data 03/12/24 14:10 03/12/24 14:10 A&P Assessment and plan (1) Cerebral infarction, left hemisphere: Impression: 1. Left cerebral infarction manifested as severe dysarthria and right lower facial weakness. Note: Since the patient's stroke symptoms began on 03/11/2024 around 5 PM and the patient did not present to the [facility] neurology clinic until 03/12/2024. Code stroke was initiated at 2:01 PM on 03/12/2024. The patient was outside of the intravenous thrombolytic window and therefore no intravenous thrombolytics were administered. CT angiogram of the head and neck performed on 02/29/2024 revealed no large vessel occlusion when the patient presented with left-sided symptoms manifested as left face and left leg numbness and weakness which resolved. Plan: 1. Recommend admitting to the hospital for embolic workup for strokes 2. Agree with starting Plavix 75 mg p.o. every morning with aspirin 81 mg p.o. every morning with food 3. Continue Lipitor 40 mg p.o. q. evening 4. Recommend cardiac workup to assess for embolic source for strokes 5. Address hypertension 6. Neurochecks and vital signs per NIH stroke protocol 7. Recommend speech therapy occupational therapy and physical therapy consult 8. Give patient stroke pamphlet 9. Instruct patient on potential side effects of Plavix and aspirin and to monitor his stools 10. Recommend repeat CBC and liver profile in 6 months since patient will be taking Plavix and aspirin Consult Attestations 2 Medical Necessity Statement: The patient was evaluated by the neurology for acute care/code stroke emergency department room number 11 Coding Level of Care Code 23933 Diagnoses Cerebral infarction, left hemisphere I63.9
[2024-03-12] MEDS: clopidogrel 75 mg Tablet 300 MG PO (15:47)
[2024-03-12 16:00] VITALS: BP 148/89; PULSE 57; O2SAT 93
[2024-03-12 16:03] LABS: Charge for UA Resulting for Rev
[2024-03-12 16:06] LABS: Bilirubin Urine Negative (Negative); Blood Urine Negative (Negative); Glucose Urine UA Negative (Normal); Ketones Urine Negative (Negative); Leukocyte Esterase Urine Negative (Negative); Nitrate Urine Negative (Negative); Protein Urine 3+ (Negative); Urine Appearance Clear (CLEAR); Urine Color Yellow (Yellow); Urobilinogen Urine 0.2 mg/dL (Negative); pH Urine 6.5 (5-7)
[2024-03-12 16:11] LABS: Bacteria Urine None Seen /hpf; Hyaline Casts Urine 0-4 /lpf; RBC Urine 0-2 /hpf (0-2); Squamous Epithelial Cell Urine 0-5 /hpf (0-5); WBC Urine 0-5 /hpf (0-5)
== END 2024-03-12 16:01 | disposition left against medical advice (07) ==
PROVIDERS: Emergency Provider Emergency Medicine
DX: I63.9 Cerebral infarction, unspecified (principal); R03.0 Elevated blood-pressure reading, without diagnosis of hypertension; Z53.29 Procedure and treatment not carried out because of patient's decision for other reasons; Z79.02 Long term (current) use of antithrombotics/antiplatelets
CPT/HCPCS: 36416; 70450; 71045; 80053; 81003; 81015; 82962; 85025; 85610; 85651; 85730; 93005; 96374; 99285; J3490

== ENCOUNTER 2024-04-07 09:04 | Outpatient (CLI) | payer MEDICARE, SELFPAY ==
--- NOTE | 2024-04-07 09:12 | MR_ITS ---
WS: [id number] MRI BRAIN WITH AND WITHOUT CONTRAST HISTORY: STROKE LIKE SYMPTOMS WEAKNESS COMPARISON: Noncontrast CT brain 03/12/2024 TECHNIQUE: Multiplanar imaging performed through the brain with MultiHance 16 ml's IV. Diffusion sequence is positive for a small acute infarct in the LEFT lundy radiata. No associated he morrhage. No additional acute infarcts. Additional scattered moderate T2 and FLAIR signal hyperintensities throughout the white matter. Predo minantly in a periventricular and subcortical white matter distribution and slightly greater on the L EFT. Small lacunar infarcts in the basal ganglia. Mild bilateral ischemic change in the hansa. Prior l acunar RIGHT thalamus. Ventricles and extra-axial spaces are normal. Clivus and pituitary gland are normal. Postcontrast images are negative for masses or vascular malformations. Dural venous sinuses are normal. Paranasal sinuses: Well aerated with no significant disease. Mastoid air cells: Normal. Calvarium and scalp: Normal. MR/MR head wo/w con [id number] IMPRESSION: 1. Small acute infarct LEFT lundy radiata. 2. Additional scattered moderate small vessel ischemic disease and bilateral l acunar infarcts as described above. Chronic ischemic changes are also noted wit hin the hansa. 3. No mass or abnormal enhancement.
[2024-04-07] MEDS: gadobenate dimeglumine 20 mL vial IV (09:35)
== END 2024-04-07 09:05 | disposition home or self-care (01) ==
LOC: RAD 09:04
PROVIDERS: Visit Provider Physician Assistant
DX: I63.81 Other cerebral infarction due to occlusion or stenosis of small artery (principal); R90.82 White matter disease, unspecified
CPT/HCPCS: 70553

== ENCOUNTER 2024-05-06 09:57 | Outpatient (CLI) | payer MEDICARE, SELFPAY ==
--- NOTE | 2024-05-06 10:05 | CT_ITS ---
WS: [id number] CT ABDOMEN PELVIS TECHNIQUE: Contrast-enhanced CT of the abdomen and pelvis with coronal and sagittal reformatted image s. CLINICAL INFORMATION: ELEVATED PSA COMPARISON: None. DLP: 409.[address] scans at [facility] use at least one of these dose optimization techniques: automated e xposure control; mA and/or kV adjustment per patient size (includes targeted exams where dose is matc hed to clinical indication); or iterative reconstruction. FINDINGS: Enlarged heterogeneously enhancing nodular prostate with calcification. Dominant nodule LEF T prostate. Prostate measures approximately 3.8 x 3.4 cm. Recommend correlation PSA. Scattered diverticuli in the colon more prominent in the transverse colon. No evidence of high-grade small or large bowel obstruction. Mild diffuse fatty infiltration of the liver. Tiny RIGHT hepatic cy st. Normal GE junction. Diffuse gastric rugal thickening can be seen with gastritis. Normal-appearing proximal duodenum. Normal portal vein and splenic vein. Mild fatty atrophy of the pancreas. Small splenule. Normal splenic enhancement. Adrenal glands are normal. Normal renal parenchymal enhan cement. Mild renal cortical atrophy. No hydronephrosis in either kidney. Tiny fat-containing umbilica l hernia. Mild aortic calcification. Celiac and SMA are patent. Normal appendix in the RIGHT lower qu adrant. Lung bases are well aerated. Pedicle screw fixation L4-5 with interbody fusion graft. CT/CT abdomen pelvis w con* [id number] IMPRESSION: 1. Enlarged heterogeneously enhancing nodular prostate with calcification. Dom inant nodule LEFT prostate. Recommend correlation PSA. 2. No other acute findings.
[2024-05-06] MEDS: iohexol 350 mg/mL 500 mL Btl (per mL) IV (10:32)
== END 2024-05-06 09:58 | disposition home or self-care (01) ==
LOC: RAD 09:58
PROVIDERS: Visit Provider Electrodiagnostic Medicine
DX: N40.0 Benign prostatic hyperplasia without lower urinary tract symptoms (principal); R97.20 Elevated prostate specific antigen [PSA]; M43.26 Fusion of spine, lumbar region
CPT/HCPCS: 74177

== ENCOUNTER 2024-05-26 08:57 | Outpatient (CLI) | payer MEDICARE, SELFPAY ==
--- NOTE | 2024-05-26 09:21 | USCV_ITS ---
Reji Bernal Age: 74 Gender: M : 1950 Exam Date: 05/26/2024 09:28 Ordering Phys: Jeyson Rowe DO Technologist: CT Exam Location: [facility] [place] Indication: cva BP: 130 / 80 HR: 50 Rhythm: Sinus Technical Quality: Adequate MEASUREMENTS (Male / Female) Normal Values 2D ECHO LVOT Diameter 2.0 cm LV Ejection Fraction MOD 4C 70.3 % LV Ejection Fraction MOD 2C 58.6 % LV Ejection Fraction 2C AL 59.6 % LA Diameter 3.4 cm RA Systolic Volume 4C AL 44.2 ml RA Systolic Volume 4C MOD 44.7 ml LA Sys Volume AL 57.6 cm cubed LA Sys Volume Index AL 30.1 cm cubed/m squared Aorta at Sinotubular Diameter 2.2 cm IVC Diameter 1.7 cm M-MODE LA Ao Ratio MM 1.6 AV Cusp Separation MM 1.8 cm DOPPLER AV Peak Velocity 235.0 cm/s LVOT Peak Velocity 119.0 cm/s AV Area Cont Eq vti 1.7 cm squared AV Area Cont Eq pk 1.6 cm squared MV Peak Velocity 109.0 cm/s MV Area PHT 3.6 cm squared Mitral E to A Ratio 1.1 TV Peak Velocity 210.5 cm/s TR Peak Velocity 265.0 cm/s TR Peak Gradient 28.1 mmHg TV Peak E Velocity 72.0 cm/s Right Atrial Pressure 3.0 mmHg Pulmonary Artery Systolic Pressu 31.1 mmHg PV Peak Velocity 110.5 cm/s FINDINGS Left Ventricle Normal left ventricular size, systolic function and wall thickness, with no regional wall motion abnormalities. Estimated LVEF is normal 65%. Right Ventricle Normal right ventricular size and systolic function. Right Atrium Normal right atrial size. Left Atrium Normal left atrial size. Mitral Valve Mildly thickened mitral valve. No mitral valve stenosis. No mitral valve regurgitation. Aortic Valve Mildly thickened aortic valve. No aortic valve stenosis. No aortic valve regurgitation. Tricuspid Valve Structurally normal tricuspid valve. Normal right ventricle and pulmonary pressures Pulmonic Valve Structurally normal pulmonic valve. Trace pulmonary valve regurgitation. Pericardium No pericardial effusion. Aorta Normal size aortic root and proximal ascending aorta. IVC Normal inferior vena cava. CONCLUSIONS 1. Normal left ventricle systolic functions. LVEF normal 65%. 2. Normal chamber sizes. 3. No significant valvular abnormalities noted. 4. Normal right heart and pulmonary pressures. Ary Townsend MD (Electronically Signed) Final Date: 27 May 2024 15:09 S
== END 2024-05-26 08:58 | disposition home or self-care (01) ==
LOC: RAD 08:59
PROVIDERS: PCP Electrodiagnostic Medicine; Visit Provider Electrodiagnostic Medicine
DX: I63.9 Cerebral infarction, unspecified (principal)
CPT/HCPCS: 93306

== ENCOUNTER → 2024-05-29 13:35 | Outpatient (BNVA) | payer MEDICARE, SELFPAY | PROVIDERS: PCP Electrodiagnostic Medicine; Visit Provider Physician Assistant | DX: M79.642 Pain in left hand (principal); M65.332 Trigger finger, left middle finger | CPT/HCPCS: 20600; 73130; 99203; J3301; J3490 ==

== ENCOUNTER → 2024-07-17 13:40 | Outpatient (BNVA) | payer MEDICARE, SELFPAY | PROVIDERS: Visit Provider Internal Medicine | DX: R07.9 Chest pain, unspecified (principal) | CPT/HCPCS: 93005; 99204 ==

== ENCOUNTER 2024-07-29 11:40 | Outpatient (RCR) | payer OTHER, SELFPAY | END 2024-07-29 23:59 | disposition home or self-care (01) | LOC: SST 11:40 | PROVIDERS: Visit Provider Nurse Practitioner Family | DX: I69.322 Dysarthria following cerebral infarction (principal) | CPT/HCPCS: 92523 ==

== ENCOUNTER 2024-07-30 06:00 | Outpatient (RCR) | payer OTHER, SELFPAY | END 2024-08-29 23:59 | disposition home or self-care (01) | LOC: SST 06:00 | PROVIDERS: Visit Provider Nurse Practitioner Family | DX: I69.322 Dysarthria following cerebral infarction (principal) | CPT/HCPCS: 92507 ==

== ENCOUNTER 2024-08-29 08:36 | Oncology outpatient (recurring) (ONCR) | payer OTHER, SELFPAY ==
--- NOTE | 2024-08-21 10:11 | N.ONRAD NP_ITS ---
Radiation Oncology New Patient Visit Patient: Reji Bernal MR#: [id number] : 1950> Age: 74> Sex: Male> Dictated by: Dr. 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 This led to a repeat PSA which returned to 16.4. He was referred to Dr. Anglin and underwent ultrasound-guided biopsy on June 04, 2024. He was found to have 4 positive biopsies on the left and 1 positive biopsy on the right with a mix of Komal 6 and 7. He has had a bone scan and a CT scan which has not revealed any evidence of metastatic disease. He is here today to discuss radiation as a treatment option. His IP SS score is currently 4. 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 Smoking and tobacco/nicotine status: former use of tobacco/nicotine Current Complaints / Review of Systems: . Vital Signs: Performed on 08/21/2024 8:49 AM BMI - 26.73 kg/m2 (high), Height - 68 in, Weight - 175.8 lbs, Temperature - 97.8 f, Pulse - 59 /min (low), Respiration - 17 /min, O2 Sat - 98 %, Pain - 0, Fatigue - 0 and BP - 154/ 73 mm(hg)(high/). Physical Exam: General: Patient is in no apparent distress. He is by himself today. HEENT: Normocephalic atraumatic. Pupils are equal, sclera clear, extraocular muscles intact , Pulmonary: Respiratory rate is regular nonlabored Cardiovascular: Regular rate and rhythm Abdomen: Mildly protuberant and android pattern Extremities: No obvious upper extremity edema or lymphedema Neurological: Alert and orient x 3. Speech is fairly intact with some mild pauses. Gait is within normal limits Psych: Affect is appropriate for current situation Pathology: Adenocarcinoma the prostate Komal's score 7 and 6 Imaging: See HPI Impression: Adenocarcinoma the prostate Valhalla score 6 and 7 Plan: I reviewed the role of radiation and prostate cancer. We talked about the simulation process. We reviewed the daily treatment regiment. We talked about the differences between 3D and IMRT. We also talked about the different delivery systems specifically gamma knife and linear accelerator. We reviewed the risks and side effects of the treatment both acute and long-term. All of his questions were answered. At this point he is anxious to get started. Will go ahead and set him up with a simulation time as were currently using CT-based guidance fiducials are no longer required. This point he verbalized understanding and is ready to get started he will return next week for simulation. We did talk about hypofractionated course of 5 and half weeks. We also touched on the 5 treatment hypofractionated course but I reminded him this does not have long-term data as yet and is still in the trial phase Signed by: 08/21/2024 10:10:32 AM <<Signature on File>> Time spent on patient:45 CPT Code: CPT Code:
--- NOTE | 2024-08-27 09:19 | ONCRAD TMN_ITS ---
Radiation Oncology Weekly Treatment Management Patient: Reji Bernal MR#: [id number] : 1950 Attending Physician: Dr. Cecilia Cano Date of Service: 08/27/2024 Fractions: 1 out of 28 Referring Physician(s) : Diagnosis: C61 - Malignant neoplasm of prostate, Diagnosed 08/21/2024 (Active) Radiotherapy to date: Course: prostate/sv, Treatment Site: Prostate 70Gy, Ref. ID: [id number], Energy: 15X, Dose/Fx (cGy): 250, #Fx: , Dose Correction (cGy): 0, Total Dose Delivered (cGy): 250, Start Date: 08/27/2024, Elapsed Days: 0 Reason for visit: The patient is being seen today as part of their regularly scheduled weekly on treatment visits to assess for acute toxicities from radiotherapy. Review of Systems: Patient had no questions or concerns Vital Signs: Performed on 08/27/2024 8:55 AM BMI - 26.396 kg/m2 (high), Height - 68 in, Weight - 173.6 lbs, Temperature - 97.4 f, Pulse - 54 /min (low), Respiration - 16 /min, O2 Sat - 100 %, Pain - 0, Fatigue - 0 and BP - 161/ 72 mm(hg)(high/). Physical Exam: No changes on exam Imaging: Radiation therapy imaging related to accurate target localization (i.e. KV, MV and CBCT) was reviewed. Appropriate changes, if any, were made to ensure treatment accuracy. Plan: Will continue with his treatments as planned Signed by: Dr. Cecilia Cano 08/27/2024 9:18:06 AM
== END 2024-08-29 23:59 | disposition home or self-care (01) ==
PROVIDERS: Visit Provider Radiology Radiation Oncology
DX: Z51.0 Encounter for antineoplastic radiation therapy (principal); C61 Malignant neoplasm of prostate
CPT/HCPCS: 77300; 77301; 77334; 77338; 77385; 99024; 99205

== ENCOUNTER 2024-09-22 11:37 | Oncology outpatient (recurring) (ONCR) | payer OTHER, SELFPAY ==
--- NOTE | 2024-09-02 13:32 | ONCRAD TMN_ITS ---
Radiation Oncology Weekly Treatment Management Patient: Gabe Soe MR#: [id number] : 1950> Attending Physician: Dr. Cecilia Cano Date of Service: 09/02/2024 Fractions: 5 out of 28 Referring Physician(s) : Diagnosis: C61 - Malignant neoplasm of prostate, Diagnosed 08/21/2024 (Active) Radiotherapy to date: Course: prostate/sv, Treatment Site: Prostate 70Gy, Ref. ID: [id number], Energy: 15X, Dose/Fx (cGy): 250, #Fx: 5 / , Dose Correction (cGy): 0, Total Dose Delivered (cGy): 1,250, Start Date: 08/27/2024, Elapsed Days: 6 Reason for visit: The patient is being seen today as part of their regularly scheduled weekly on treatment visits to assess for acute toxicities from radiotherapy. Review of Systems: Patient denies any changes Vital Signs: Performed on 09/02/2024 1:16 PM BMI - 26.791 kg/m2 (high), Height - 68 in, Weight - 176.2 lbs, Temperature - 97 f, Pulse - 52 /min (low), Respiration - 18 /min, O2 Sat - 97 %, Pain - 0, Fatigue - 0 and BP - 153/ 68 mm(hg)(high/). Physical Exam: No changes on exam Imaging: Radiation therapy imaging related to accurate target localization (i.e. KV, MV and CBCT) was reviewed. Appropriate changes, if any, were made to ensure treatment accuracy. Plan: Continue treatments as planned Signed by: Dr. Cecilia Cano 09/02/2024 1:31:12 PM
--- NOTE | 2024-09-09 13:00 | ONCRAD TMN_ITS ---
Radiation Oncology Weekly Treatment Management Patient: Gabe Seo MR#: [id number] : 1950> Attending Physician: Dr. Cecilia Cano Date of Service: 09/09/2024 Fractions: 10 out of 28 Referring Physician(s) : Diagnosis: C61 - Malignant neoplasm of prostate, Diagnosed 08/21/2024 (Active) Radiotherapy to date: Course: prostate/sv, Treatment Site: Prostate 70Gy, Ref. ID: [id number], Energy: 15X, Dose/Fx (cGy): 250, #Fx: , Dose Correction (cGy): 0, Total Dose Delivered (cGy): 2,500, Start Date: 08/27/2024, Elapsed Days: 13 Reason for visit: The patient is being seen today as part of their regularly scheduled weekly on treatment visits to assess for acute toxicities from radiotherapy. Review of Systems: Patient denies any complaints Vital Signs: Performed on 09/09/2024 11:41 AM BMI - 26.974 kg/m2 (high), Height - 68 in, Weight - 177.4 lbs, Temperature - 97.2 f, Pulse - 59 /min (low), Respiration - 17 /min, O2 Sat - 100 %, Pain - 0, Fatigue - 0 and BP - 157/ 75 mm(hg)(high/). Physical Exam: No changes on exam Imaging: Radiation therapy imaging related to accurate target localization (i.e. KV, MV and CBCT) was reviewed. Appropriate changes, if any, were made to ensure treatment accuracy. Plan: Will continue with treatments as planned Signed by: Dr. Cecilia Cano 09/09/2024 1:00:10 PM
--- NOTE | 2024-09-16 09:57 | ONCRAD TMN_ITS ---
Radiation Oncology Weekly Treatment Management Patient: Gabe Seo MR#: [id number] : 1950> Attending Physician: Dr. Cecilia Cano Date of Service: 09/16/2024 Fractions: 15 out of 28 Referring Physician(s) : Diagnosis: C61 - Malignant neoplasm of prostate, Diagnosed 08/21/2024 (Active) Radiotherapy to date: Course: prostate/sv, Treatment Site: Prostate 70Gy, Ref. ID: [id number], Energy: 15X, Dose/Fx (cGy): 250, #Fx: 15 / , Dose Correction (cGy): 0, Total Dose Delivered (cGy): 3,750, Start Date: 08/27/2024, Elapsed Days: 20 Reason for visit: The patient is being seen today as part of their regularly scheduled weekly on treatment visits to assess for acute toxicities from radiotherapy. Review of Systems: Patient denies any complaints or changes Vital Signs: Performed on 09/16/2024 9:05 AM BMI - 26.761 kg/m2 (high), Height - 68 in, Weight - 176 lbs, Temperature - 97.9 f, Pulse - 54 /min (low), Respiration - 16 /min, O2 Sat - 97 %, Pain - 0, Fatigue - 0 and BP - 144/ 72 mm(hg)(high/). Physical Exam: No changes on exam Imaging: Radiation therapy imaging related to accurate target localization (i.e. KV, MV and CBCT) was reviewed. Appropriate changes, if any, were made to ensure treatment accuracy. Plan: Will continue with treatments as planned Signed by: Dr. Cecilia Cano 09/16/2024 9:55:52 AM
== END 2024-09-22 23:59 | disposition home or self-care (01) ==
PROVIDERS: Visit Provider Radiology Radiation Oncology
DX: Z51.0 Encounter for antineoplastic radiation therapy (principal); C61 Malignant neoplasm of prostate
CPT/HCPCS: 77336; 77385; 99024

== ENCOUNTER 2024-09-26 07:58 | Oncology outpatient (recurring) (ONCR) | payer OTHER, SELFPAY ==
--- NOTE | 2024-09-23 13:02 | ONCRAD TMN_ITS ---
Radiation Oncology Weekly Treatment Management Patient: Reji Bernal MR#: [id number] : 1950 Attending Physician: Jovanny Umaña Date of Service: 09/23/2024 Referring Physician(s) : Diagnosis: C61 - Malignant neoplasm of prostate, Diagnosed 08/21/2024 (Active) Radiotherapy to date: Course: prostate/sv, Treatment Site: Prostate 70Gy, Ref. ID: [id number], Energy: 15X, Dose/Fx (cGy): 250, #Fx: , Dose Correction (cGy): 0, Total Dose Delivered (cGy): 4,750, Start Date: 08/27/2024, Elapsed Days: 27 Reason for visit: The patient is being seen today as part of their regularly scheduled weekly on treatment visits to assess for acute toxicities from radiotherapy. Review of Systems: No voice complaints Vital Signs: Performed on 09/23/2024 11:41 AM BMI - 26.061 kg/m2 (high), Height - 68 in, Weight - 171.4 lbs, Temperature - 97.5 f, Pulse - 52 /min (low), Respiration - 16 /min, O2 Sat - 100 %, Pain - 0, Fatigue - 0 and BP - 159/ 67 mm(hg)(high/). Physical Exam: Alert and oriented and answers questions appropriately. Skin intact Imaging: Radiation therapy imaging related to accurate target localization (i.e. KV, MV and CBCT) was reviewed. Appropriate changes, if any, were made to ensure treatment accuracy. Plan: Continue XRT Signed by: Jovanny Umaña 09/23/2024 1:00:07 PM
== END 2024-09-26 23:59 | disposition home or self-care (01) ==
PROVIDERS: Visit Provider Radiology Radiation Oncology
DX: Z51.0 Encounter for antineoplastic radiation therapy (principal); C61 Malignant neoplasm of prostate
CPT/HCPCS: 77336; 77385; 99024

== ENCOUNTER 2024-10-06 11:34 | Oncology outpatient (recurring) (ONCR) | payer OTHER, SELFPAY ==
--- NOTE | 2024-09-30 12:02 | ONCRAD TMN_ITS ---
No voice complaints. Patient denies any blood in the urine, blood in the stool, diarrhea, constipation, or new bony tenderness. Radiation Oncology Weekly Treatment Management Patient: Gabe Mendoza> MR#: [id number] : 1950> Attending Physician: Jovanny Umaña Date of Service: 09/30/2024 Referring Physician(s) : Diagnosis: C61 - Malignant neoplasm of prostate, Diagnosed 08/21/2024 (Active) Radiotherapy to date: Course: prostate/sv, Treatment Site: Prostate 70Gy, Ref. ID: [id number], Energy: 15X, Dose/Fx (cGy): 250, #Fx: , Dose Correction (cGy): 0, Total Dose Delivered (cGy): 6,000, Start Date: 08/27/2024, Elapsed Days: 34 Reason for visit: The patient is being seen today as part of their regularly scheduled weekly on treatment visits to assess for acute toxicities from radiotherapy. Review of Systems: Patient denies any complaints. He specifically denies any blood in the urine, blood in stool, diarrhea, constipation, or new bony tenderness. Vital Signs: Performed on 09/30/2024 11:49 AM BMI - 26.791 kg/m2 (high), Height - 68 in, Weight - 176.2 lbs, Temperature - 97.4 f, Pulse - 60 /min, Respiration - 18 /min, O2 Sat - 96 %, Pain - 0, Fatigue - 0 and BP - 154/ 77 mm(hg)(high/). Physical Exam: Alert and oriented and answers questions appropriately. Skin intact. Imaging: Radiation therapy imaging related to accurate target localization (i.e. KV, MV and CBCT) was reviewed. Appropriate changes, if any, were made to ensure treatment accuracy. Plan: Continue XRT Signed by: Jovanny Umaña 09/30/2024 12:01:32 PM
--- NOTE | 2024-10-06 14:15 | N.ONRD TS_ITS ---
Radiation Oncology Treatment Summary Patient: Reji Bernal MR#: [id number] : 1950 Age: 74 Sex: Male Dictated by: Dr. Cecilia Cano Date of Service: 10/06/2024 Referring Physician(s) : Diagnosis: C61 - Malignant neoplasm of prostate, Diagnosed 08/21/2024 (Active) Radiotherapy to Date: Course: prostate/sv, Treatment Site: Prostate 70Gy, Ref. ID: [id number], Energy: 15X, Dose/Fx (cGy): 250, #Fx: , Dose Correction (cGy): 0, Total Dose Delivered (cGy): 7,000, Start Date: 08/27/2024, End Date: 10/06/2024, Elapsed Days: 40 Clinical Summary: The patient tolerated RT well. Plan: End of treatment today. Continue on the above medication until the skin reaction resolves. Follow up in one month. Signed by: Dr. Cecilia Cano>10/06/2024 2:14:23 PM <<Signature on File>>
== END 2024-10-27 23:59 | disposition home or self-care (01) ==
PROVIDERS: Visit Provider Radiology Radiation Oncology
DX: Z51.0 Encounter for antineoplastic radiation therapy (principal); C61 Malignant neoplasm of prostate
CPT/HCPCS: 77336; 77385; 99024

== ENCOUNTER → 2024-10-07 08:37 | Outpatient (BNVA) | payer OTHER, SELFPAY | PROVIDERS: Referring Provider Electrodiagnostic Medicine; Visit Provider Psychiatry & Neurology Neurology | DX: I63.9 Cerebral infarction, unspecified (principal) | CPT/HCPCS: 99212 ==

== ENCOUNTER 2024-10-30 09:47 | Oncology outpatient (recurring) (ONCR) | payer OTHER, SELFPAY ==
--- NOTE | 2024-10-30 10:10 | ONCRAD EPV_ITS ---
Radiation Oncology Established Patient Visit Patient: Gabe Mendoza [id number] : 1950> Age: 74> Sex: Male> Dictated by: Dr. Cecilia Cano Date of Service: 10/30/2024 Referring Physician(s) : Diagnosis: C61 - Malignant neoplasm of prostate, Diagnosed 08/21/2024 (Active) Radiotherapy to Date: Course: prostate/sv, Treatment Site: Prostate 70Gy, Ref. ID: [id number], Energy: 15X, Dose/Fx (cGy): 250, #Fx: , Dose Correction (cGy): 0, Total Dose Delivered (cGy): 7,000, Start Date: 08/27/2024, End Date: 10/06/2024, Elapsed Days: 40 Current History: Patient returns for his first month check. He is PSA at the completion of his radiation was 16.4. The most recent PSA this week was 8.9. His bowel bladder habits have returned to normal. He is in good spirits. Current Medications: Allergies: No Known Allergies Current Complaints / Review of Systems: . Vital Signs: Performed on 10/30/2024 9:47 AM BMI - 26.487 kg/m2 (high), Height - 68 in, Weight - 174.2 lbs, Temperature - 97.5 f, Pulse - 57 /min (low), Respiration - 18 /min, O2 Sat - 98 %, Pain - 0, Fatigue - 0 and BP - 132/ 68 mm(hg). Physical Exam: General: Alert and oriented x 3. No acute distress. Performance Status: 100 Lab: None pending. Pathology: Primary, c61 - malignant neoplasm of prostate, Diagnosed 08/21/2024 (active) . Imaging: See HPI Impression: Adenocarcinoma the prostate initial PSA 16.4 status post actually radiation Plan: At this time he is doing well. He is recovered from his treatments with no toxicity. He is going to be following with urology. I did recommend he go back to a 3 months schedule on his PSAs. Will be happy to see him back at any time as needed. Signed by: 10/30/2024 10:09:12 AM <<Signature on File>> Time spent with patient: 20 CPT Code: * CPT Code: *
== END 2024-11-26 23:59 | disposition home or self-care (01) ==
PROVIDERS: Visit Provider Radiology Radiation Oncology
DX: Z08 Encounter for follow-up examination after completed treatment for malignant neoplasm (principal); C61 Malignant neoplasm of prostate; Z92.3 Personal history of irradiation
CPT/HCPCS: 99024

== ENCOUNTER 2024-12-15 09:32 | Emergency (ER) | payer OTHER, SELFPAY ==
[2024-12-15 09:35] VITALS: BP 140/69; PULSE 70; TEMP 36.6; O2SAT 98; BMI 25.8
--- NOTE | 2024-12-15 09:40 | ECG_ITS ---
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 Measurements Intervals [place] Rate: 63 P: 22 AL: 154 QRS: 45 QRSD: 90 T: 76 QT: 400 QTc: 410 Interpretive Statements SINUS RHYTHM INTERPRETATION BASED ON A DEFAULT AGE OF 40 YEARS Compared to ECG 07/17/2024 13:45:29 Sinus bradycardia no longer present Electronically Signed On 12-16-2024 06:28:16 CDT by Becca Reddy M.D. [email or web address]
--- NOTE | 2024-12-15 09:52 | XRR_ITS ---
PROCEDURE INFORMATION: Exam: XR Chest Exam date and time: 12/15/2024 9:55 AM Age: 74 years old Clinical indication: Shortness of breath; Additional info: SOB TECHNIQUE: Imaging protocol: Radiologic exam of the chest. Views: 1 view. COMPARISON: CR XR chest 1V portable [id number] 03/12/2024 2:18 PM FINDINGS: Lungs: There is mild prominence of the pulmonary vasculature and increased linear opacity seen in the mid and lower torsten thoraces, findings suggesting pulmonary edema. Superimposed interstitial infiltrates and pneumonia can not be entirely excluded. Pleural spaces: Unremarkable. No pleural effusion. No pneumothorax. Heart/Mediastinum: Unremarkable. No cardiomegaly. Bones/joints: Unremarkable. XR/XR chest 1V portable [id number] IMPRESSION: Mildly prominent pulmonary vasculature and increased linear opacity seen in the mid and lower torsten thoraces suggests pulmonary edema. Superimposed infiltrates and pneumonia can not be entirely excluded.
--- NOTE | 2024-12-15 10:42 | W.ED.SOB ---
HPI - SOB/Dyspnea General: Chief Complaint: Shortness of Breath/Dyspnea Stated Complaint: sob Time Seen by Provider: 12/15/24 10:30 History of Present Illness: HPI Narrative: 74-year-old male presents emergency room complaining of shortness of breath for the last 3 days. Patient has a known history of prostate cancer. he has been being treated in [place]. He has had difficulty with breathing in the past usually gets it to resolve with an albuterol treatment has not seemed to improve with that. He does have a little increased edema of his lower extremities today. He has undergone a full course of radiation for his prostate cancer currently receiving a chemotherapy and they are looking at potentially adding some antihormone therapy later this year. No abdominal pain. Associated symptoms: Deny abdominal pain, chest pain or fever(s) Related Data Home Medications ?Medication ?Instructions ?Recorded ?Confirmed promethazine 25 mg tablet 50 mg PO BEDTIME PRN Sleep 02/29/24 10/07/24 amlodipine 5 mg tablet 5 mg PO DAILY 05/29/24 10/07/24 tamsulosin 0.4 mg capsule 0.4 mg PO DAILY 05/29/24 07/17/24 aspirin 81 mg tablet,delayed 81 mg PO DAILY 07/17/24 10/07/24 release clonidine HCl 0.2 mg tablet 0.2 mg PO BID 07/17/24 10/07/24 olmesartan 20 mg tablet (Benicar) 20 mg PO DAILY 07/17/24 10/07/24 cholecalciferol (vitamin D3) 50 50 mcg PO DAILY 10/07/24 10/07/24 mcg (2,000 unit) tablet doxycycline hyclate 100 mg capsule 100 mg PO DAILY 10/07/24 10/07/24 magnesium 5 tab PO DAILY 10/07/24 10/07/24 mecobalamin (vitamin B12) 2,500 mcg PO 10/07/24 10/07/24 mcg chewable tablet metoprolol tartrate 50 mg tablet 50 mg PO BID 10/07/24 10/07/24 Previous Rx's ?Medication ?Instructions ?Recorded clopidogrel 75 mg tablet (Plavix) 75 mg PO DAILY #30 tabs 02/29/24 atorvastatin 40 mg tablet 40 mg PO DAILY #30 tabs 03/12/24 albuterol sulfate 90 mcg/actuation 2 inh inhalation Q4H PRN shortness 12/15/24 aerosol inhaler of breath or wheezing #18 grams budesonide-formoterol HFA 80 2 inh inhalation BID #10.2 grams 12/15/24 mcg-4.5 mcg/actuation aerosol inhaler (Symbicort) ipratropium 0.5 mg-albuterol 3 mg 3 ml inhalation Q4H PRN shortness 12/15/24 (2.5 mg base)/3 mL nebulization of breath or wheezing #90 mL soln levofloxacin 750 mg tablet 750 mg PO DAILY 7 days #7 tabs 12/15/24 methylprednisolone 4 mg tablets in See Rx Instructions PO .COMPLEX 12/15/24 a dose pack (Medrol (Chip)) #21 ea Allergies Allergy/AdvReac Type Severity Reaction Status Date / Time No Known Allergies Allergy Verified 12/15/24 09:45 Review of Systems Const: Denies: fever(s) or chills Card: Denies: chest pain Resp: Reports: dyspnea GI: Denies: abdominal pain : Denies: dysuria, urinary frequency or urinary urgency Musc: Denies: neck pain or back pain Skin/Breast: Denies: rash PFS ED PFSH: Medical History (Updated 12/15/24 @ 11:44 by Arnie Diaz DO) History of CVA (cerebrovascular accident) Cerebral infarction, left hemisphere Hypertension Social History Smoking and tobacco/nicotine status: former use of tobacco/nicotine Physical Exam Const: GENERAL APPEARANCE: cooperative ORIENTATION/CONSCIOUSNESS: Yes awake, Yes oriented to person, Yes oriented to place and Yes oriented to time HENMT: COMMON NORMALS: normocephalic, atraumatic and hearing grossly normal bilaterally HEAD & SCALP: normocephalic and atraumatic Resp: COMMON NORMALS: normal respiratory effort, No retractions, No use of accessory muscles and clear to auscultation bilaterally AUSCULTATION: clear to auscultation bilaterally Cardio: COMMON NORMALS: regular rate, regular rhythm and No murmurs present (Cardio) RATE: regular rate RHYTHM: regular rhythm GI: COMMON NORMALS: Soft to palpation and No hepatosplenomegaly present AUSCULTATION: Yes normoactive bowel sounds PALPATION: Yes Soft to palpation, No Tenderness to palpation present (GI), No Guarding due to palpation present (GI) and Yes No hepatosplenomegaly present Extremity: COMMON NORMALS: normal to inspection, capillary refill normal and no calf tenderness GENERAL: Yes edema (Trace pretibial edema) Neuro: SENSORIUM/ORIENTATION: Yes oriented to person, Yes oriented to place and Yes oriented to time Skin: COMMON NORMALS: no rashes or lesions noted GENERAL SKIN EXAM: no rashes or lesions noted Course Vital Signs: Vital signs: Vital Signs Temperature 97.8 F 12/15/24 09:35 Pulse Rate 56 L 12/15/24 12:05 Respiratory Rate 18 12/15/24 12:05 Blood Pressure 116/57 12/15/24 11:55 Pulse Oximetry 94 12/15/24 12:05 Oxygen Delivery Me thod Room Air 12/15/24 12:05 MDM - SOB/Dyspnea Medical Decision Making Improved with nebulizer. Will discharge home on Symbicort refilled DuoNebs for his small-volume nebulizer also put him on a prednisone taper questionable little pneumonia on his chest x-ray we will put him on Levaquin for this. Recheck with his primary if not improving Medical Records I reviewed the patient's medical records. Lab Data I reviewed the patient's lab results. 12/15/24 10:35 12/15/24 10:35 Labs/Radiology: Radiology Impressions Chest X-Ray 12/15/24 09:52 IMPRESSION: Mildly prominent pulmonary vasculature and increased linear opacity seen in the mid and lower torsten thoraces suggests pulmonary edema. Superimposed infiltrates and pneumonia can not be entirely excluded. Laboratory Results WBC 6.92 10^3/uL (3.29-11.43) 12/15/24 10:35 RBC 4.66 10^6/uL (3.85-5.65) 12/15/24 10:35 Hgb 14.30 g/dL (11.27-16.99) 12/15/24 10:35 Hct 42.8 % (37-53) 12/15/24 10:35 MCV 91.8 fl (82-101) 12/15/24 10:35 MCH 30.7 pg (27-33) 12/15/24 10:35 MCHC 33.4 g/dL (30-55) 12/15/24 10:35 RDW 12.8 % (12.1-15.1) 12/15/24 10:35 Plt Count 187 10^3/cmm (157-399) 12/15/24 10:35 MPV 9.8 fL (7.4-10.4) 12/15/24 10:35 Neut % (Auto) 63.3 % 12/15/24 10:35 Lymph % (Auto) 14.0 % 12/15/24 10:35 [place] % (Auto) 10.4 % 12/15/24 10:35 Eos % (Auto) 10.7 % 12/15/24 10:35 Baso % (Auto) 1.2 % 12/15/24 10:35 Neut # (Auto) 4.38 10^3/uL (1.8-7.7) 12/15/24 10:35 Lymph # (Auto) 1.0 10^3/uL (0.8-4.8) 12/15/24 10:35 [place] # (Auto) 0.7 10^3/uL (0.2-0.9) 12/15/24 10:35 Eos # (Auto) 0.7 10^3/uL (0.0-0.8) 12/15/24 10:35 Baso # (Auto) 0.1 10^3/uL (0.0-0.1) 12/15/24 10:35 Nucleated RBC % (auto) 0 % 12/15/24 10:35 Nucleated RBCs # 0.0 /100WBC 12/15/24 10:35 Sodium 142 mmol/L (136-145) 12/15/24 10:35 Potassium 4.2 mmol/L (3.5-5.1) 12/15/24 10:35 Chloride 105 mmol/L (98-107) 12/15/24 10:35 Carbon Dioxide 23 mmol/L (22-29) 12/15/24 10:35 Anion Gap 18.2 (5-19) 12/15/24 10:35 BUN 14 mg/dL (8-23) 12/15/24 10:35 Creatinine 0.8 mg/dL (0.7-1.2) 12/15/24 10:35 GFR Calculation Not Reportable 12/15/24 10:35 Glucose 112 mg/dL (65-115) 12/15/24 10:35 Calculated Osmolality 295 mOsm/kg (285-295) 12/15/24 10:35 Calcium 9.1 mg/dL (8.5-10.5) 12/15/24 10:35 Total Bilirubin 0.6 mg/dL (0.15-1.2) 12/15/24 10:35 AST 16 U/L (0-40) 12/15/24 10:35 ALT 15 U/L (0-41) 12/15/24 10:35 Alkaline Phosphatase 97 U/L (40-130) 12/15/24 10:35 NT-Pro-B Natriuret Pep 109 pg/mL (0-125) 12/15/24 10:35 Total Protein 6.6 g/dL (6.6-8.7) 12/15/24 10:35 Albumin 4.0 g/dL (3.5-5.2) 12/15/24 10:35 Globulin 2.6 g/dL (1.3-4.6) 12/15/24 10:35 All radiology interpretation(s) finalized by discharge Discharge Plan Discharge Patient Disposition: Home Clinical Impression: Pneumonia, Prostate cancer Condition: Stable Prescriptions: New levofloxacin 750 mg tablet 750 mg PO DAILY 7 Days Qty: 7 0RF methylprednisolone [Medrol (Chip)] 4 mg tablets,dose pack See Rx Instructions .ROUTE .COMPLEX Qty: 21 0RF Rx Instructions: orally per package directions albuterol sulfate 90 mcg/actuation HFA aerosol inhaler 2 inh INHALATION Q4H PRN (Reason: shortness of breath or wheezing) Qty: 18 0RF budesonide-formoterol [Symbicort] 80-4.5 mcg/actuation HFA aerosol inhaler 2 inh inhalation BID Qty: 10.2 0RF ipratropium-albuterol 0.5 mg-3 mg(2.5 mg base)/3 mL solution for nebulization 3 ml inhalation Q4H PRN (Reason: shortness of breath or wheezing) Qty: 90 0RF No Action olmesartan [Benicar] 20 mg tablet 20 mg PO DAILY clonidine HCl 0.2 mg tablet 0.2 mg PO BID aspirin 81 mg tablet,delayed release (DR/EC) 81 mg PO DAILY magnesium Tablet 5 tab PO DAILY tamsulosin 0.4 mg capsule 0.4 mg PO DAILY amlodipine 5 mg tablet 5 mg PO DAILY doxycycline hyclate 100 mg capsule 100 mg PO DAILY mecobalamin (vitamin B12) 2,500 mcg tablet,chewable PO cholecalciferol (vitamin D3) 50 mcg (2,000 unit) tablet 50 mcg PO DAILY metoprolol tartrate 50 mg tablet 50 mg PO BID atorvastatin 40 mg tablet 40 mg PO DAILY Qty: 30 3RF promethazine 25 mg tablet 50 mg PO BEDTIME PRN (Reason: Sleep) clopidogrel [Plavix] 75 mg tablet 75 mg PO DAILY Qty: 30 0RF Discharge Orders: Discharge ED (Routine); Ordered 12/15/24 Ordered By: Arnie Diaz Referrals: Izzy Wheeler MD [Primary Care Provider, Family Practice] Discharge Diet: Usual diet Discharge Activity: Increase activity as tolerated Patient Instructions: Opioid Safety, Pain Management Activity Restrictions/Additional Instructions: Thank you for choosing [facility] for your healthcare needs today. It is very important that you follow up as instructed or that you return to the Emergency Department should you have concerns or if your condition changes or worsens in any way. You are seen in the emergency room complaints of shortness of breath. Your chest x-ray is a question of a developing pneumonia on the right side recommend you start Levaquin 750 once a day for a week. You are given prednisone in the emergency room start oral prednisone taper this evening. You are also given a refill of your albuterol inhaler and DuoNebs to use in your nebulizer at home. Recommend he also start Symbicort 2 puffs twice a day. Follow-up with your primary care doctor within the next 10 to 14 days. Return if you have worsening problems. Print Language: Tanzanian Coding Level of Care Code ED Sheet [facility] for Ney Cade
[2024-12-15 10:59] LABS: Basophils # 0.1 10^3/uL (0.0-0.1); Basophils % 1.2 %; Eosinophils # 0.7 10^3/uL (0.0-0.8); Eosinophils % 10.7 %; Hematocrit 42.8 % (37-53); Mean Corpuscular HGB Conc 33.4 g/dL (30-55); Mean Corpuscular Hemoglobin 30.7 pg (27-33); Mean Corpuscular Volume 91.8 fl (82-101); Mean Platelet Volume 9.8 fL (7.4-10.4); Monocytes # 0.7 10^3/uL (0.2-0.9); Monocytes % 10.4 %; Neutrophils # 4.38 10^3/uL (1.8-7.7); Neutrophils % 63.3 %; Nucleated Red Blood Cells % 0 %; Platelet Count 187 10^3/cmm (157-399); Red Blood Count 4.66 10^6/uL (3.85-5.65); Red Cell Distribution Width 12.8 % (12.1-15.1); White Blood Count 6.92 10^3/uL (3.29-11.43)
[2024-12-15 11:21] LABS: Alanine Aminotransferase 15 U/L (0-41); Alkaline Phosphatase 97 U/L (40-130); Aspartate Amino Transferase 16 U/L (0-40); Blood Urea Nitrogen 14 mg/dL (8-23); Calcium 9.1 mg/dL (8.5-10.5); Carbon Dioxide 23 mmol/L (22-29); Chloride 105 mmol/L (98-107); Creatinine Clr Calc Pharmacy 84.8635; Globulin 2.6 g/dL (1.3-4.6); Glucose 112 mg/dL (65-115); NT Pro B Type Natriuretic Pept 109 pg/mL (0-125); Osmolality Calculated 295 mOsm/kg (285-295); Sodium 142 mmol/L (136-145); Total Bilirubin 0.6 mg/dL (0.15-1.2); Total Protein 6.6 g/dL (6.6-8.7)
[2024-12-15 11:32] LABS: Anion Gap 18.2 (5-19); Potassium 4.2 mmol/L (3.5-5.1)
[2024-12-15] MEDS: methylPREDNISolone sod succ 125 mg/2 mL INJ IVP (11:43)
[2024-12-15 11:45] VITALS: BP 116/57; PULSE 55; O2SAT 96
[2024-12-15 11:55] VITALS: BP 116/57; PULSE 55; O2SAT 96
[2024-12-15 12:05] VITALS: PULSE 56; RESP 18; O2SAT 94
[2024-12-15] MEDS: ipratropium-albuterol 3 mL Neb INHALATION (12:06)
== END 2024-12-15 12:11 | disposition home or self-care (01) ==
PROVIDERS: Emergency Medicine; Emergency Provider Family Medicine; PCP Family Medicine
DX: J18.9 Pneumonia, unspecified organism (principal); I10 Essential (primary) hypertension; C61 Malignant neoplasm of prostate; Z79.82 Long term (current) use of aspirin; Z79.899 Other long term (current) drug therapy; Z86.73 Personal history of transient ischemic attack (TIA), and cerebral infarction without residual deficits; Z87.891 Personal history of nicotine dependence
CPT/HCPCS: 71045; 80053; 83880; 85025; 93005; 94640; 96374; 99285; J2919; J9999

== ENCOUNTER → 2025-04-16 13:24 | Outpatient (BNVA) | payer OTHER, SELFPAY | PROVIDERS: PCP Family Medicine; Visit Provider Internal Medicine | DX: I10 Essential (primary) hypertension (principal); Z86.73 Personal history of transient ischemic attack (TIA), and cerebral infarction without residual deficits; Z87.891 Personal history of nicotine dependence | CPT/HCPCS: 99214 ==